=== PATIENT | female | born 1975 | race Hispanic/Latino ===

== ENCOUNTER 2018-12-16 13:49 | Emergency (ER) | payer BC ==
[~2018-12-16] VITALS: Ht 162.6 cm; Wt 112.5 kg
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
== END 2018-12-16 15:15 | disposition home or self-care (01) ==
LOC: FSED 13:49
DX: S06.0X1A Concussion with loss of consciousness of 30 minutes or less, initial encounter (principal); S00.03XA Contusion of scalp, initial encounter; R41.3 Other amnesia; V43.52XA Car driver injured in collision with other type car in traffic accident, initial encounter; Y92.488 Other paved roadways as the place of occurrence of the external cause
CPT/HCPCS: 70450; 99283